=== PATIENT | female | born 1970 | race Caucasian/White ===

== ENCOUNTER 2021-05-18 07:51 | Emergency (ER) | payer OTHER, MEDICAID, SELFPAY ==
[~2021-05-18] VITALS: Ht 152.4 cm; Wt 49.9 kg
[2021-05-18 07:51] VITALS: BP_SYST 170
[2021-05-18] MEDS ORDERED: LevETIRAcetam 500 MG/5 ML UDC ORAL LIQUID GT ONE (08:15)
[2021-05-18 08:42] LABS: BASOPHILS % (AUTO) 0.5 % (0.0-2.0); EOSINOPHILS # (AUTO) 0.1 K/uL (0.0-0.4); HEMATOCRIT 38.8 % (36-48); HEMOGLOBIN 12.9 g/dL (12.0-16.0); LYMPHOCYTES % (AUTO) 29.4 % (20.5-51.5); MEAN CORPUSCULAR HEMOGLOBIN 31 pg (27-31); MEAN CORPUSCULAR HGB CONC 33 % (32-36); MEAN CORPUSCULAR VOLUME 94 fL (79.0-98.0); MONOCYTES # (AUTO) 0.3 K/uL (0.0-1.0); NEUTROPHILS % (AUTO) 59.1 % (40.0-70.0); PLATELET COUNT (AUTO) 164 K/uL (130-430); RED BLOOD CELL COUNT(AUTO) 4.15 MIL/uL (4.2-6.2); RED CELL DISTRIBUTION WIDTH 13.5 % (9.0-15.0); WHITE BLOOD COUNT (AUTO) 3.4 K/uL (4.8-10.8)
[2021-05-18 08:57] LABS: CALCIUM 8.6 mg/dL (8.4-11.0); CREATININE 0.85 mg/dL (0.55-1.30)
[2021-05-18] MEDS ORDERED: LORazepam 2 MG/ML VIAL ONE (09:14)
[2021-05-18] MEDS ORDERED: LORazepam 2 MG/ML VIAL IVP ONE (09:15)
[2021-05-18 09:16] LABS: ALBUMIN 3.7 g/dL (3.4-4.8); TOTAL BILIRUBIN 0.6 mg/dL (0.0-1.0)
[2021-05-18 11:48] VITALS: BP_SYST 133
== END 2021-05-18 11:48 | disposition home or self-care (01) ==
LOC: SED 07:51
DX: G40.909 Epilepsy, unspecified, not intractable, without status epilepticus (principal)
CPT/HCPCS: 36415; 70450; 76376; 80053; 83605; 85025; 99284; J2060

== ENCOUNTER 2021-11-07 10:18 | Emergency (ER) | payer OTHER, MEDICAID ==
[~2021-11-07] VITALS: Ht 167.6 cm; Wt 63.5 kg
[2021-11-07 10:25] VITALS: BP_SYST 93
[2021-11-07] MEDS ORDERED: levETIRAcetam 500 MG IV PREMIX 100 ML IV ONE (10:30)
[2021-11-07 11:21] LABS: BASOPHILS % (AUTO) 0.6 % (0.0-2.0); EOSINOPHILS # (AUTO) 0.1 K/uL (0.0-0.4); EOSINOPHILS % (AUTO) 2.4 % (0.0-4.0); HEMATOCRIT 35.9 % (36-48); HEMOGLOBIN 12.2 g/dL (12.0-16.0); LYMPHOCYTES # (AUTO) 0.8 K/uL (1.0-5.5); LYMPHOCYTES % (AUTO) 18.8 % (20.5-51.5); MEAN CORPUSCULAR HEMOGLOBIN 32 pg (27-31); MEAN CORPUSCULAR HGB CONC 34 % (32-36); MEAN CORPUSCULAR VOLUME 93 fL (79.0-98.0); MONOCYTES # (AUTO) 0.3 K/uL (0.0-1.0); MONOCYTES % (AUTO) 7.4 % (1.7-9.3); NEUTROPHILS % (AUTO) 70.8 % (40.0-70.0); PLATELET COUNT (AUTO) 167 K/uL (130-430); RED BLOOD CELL COUNT(AUTO) 3.87 MIL/uL (4.2-6.2); RED CELL DISTRIBUTION WIDTH 13.8 % (9.0-15.0); WHITE BLOOD COUNT (AUTO) 4.3 K/uL (4.8-10.8)
[2021-11-07 11:29] LABS: CALCIUM 8.7 mg/dL (8.4-11.0); CREATININE 0.82 mg/dL (0.55-1.30)
[2021-11-07 11:34] LABS: ALBUMIN 3.5 g/dL (3.4-4.8); TOTAL BILIRUBIN 0.7 mg/dL (0.0-1.0)
[2021-11-07 12:27] VITALS: BP_SYST 106
== END 2021-11-07 12:29 | disposition home or self-care (01) ==
LOC: SED 10:18
DX: G40.909 Epilepsy, unspecified, not intractable, without status epilepticus (principal); Z79.899 Other long term (current) drug therapy
CPT/HCPCS: 99284; 96365; 80053; 84703; 85025; 36415; 83605; J1953

== ENCOUNTER 2023-04-10 00:10 | Inpatient (IN) | payer OTHER, MEDICAID ==
[~2023-04-10] VITALS: Ht 170.2 cm; Wt 58.1 kg
[2023-04-10 00:14] VITALS: BP_SYST 120; PULSE 84; RESP 20; TEMP 97.1; O2SAT 95
[2023-04-10 01:21] LABS: BILIRUBIN,URINE NEGATIVE (NEGATIVE); BLOOD, URINE NEGATIVE (NEGATIVE); CLARITY/URINE CLEAR (CLEAR); COLOR,URINE YELLOW (YELLOW); GLUCOSE,URINE NEGATIVE (NEGATIVE); KETONES,URINE NEGATIVE (NEGATIVE); LEUKOCYTE ESTERASE ,URINE NEGATIVE (NEGATIVE); NITRITE, URINE POSITIVE (NEGATIVE); PROTEIN URINE NEGATIVE (NEGATIVE); UROBILINOGEN,URINE 0.2 (0.2-1.0)
[2023-04-10 01:34] LABS: BACTERIA,URINE MANY /HPF (None Seen)
[2023-04-10] MEDS ORDERED: cefTRIAXone 1 GM IVPB PREMIX 50 ML IV ONE (02:00)
[2023-04-10 02:15] LABS: CALCIUM 9.2 mg/dL (8.4-11.0); CREATININE 0.72 mg/dL (0.55-1.30); POTASSIUM 3.6 mmol/L (3.5-5.1)
[2023-04-10 02:19] LABS: ALBUMIN 3.3 g/dL (3.4-4.8); BILIRUBIN,DIRECT 0.1 mg/dL (0.0-0.3); TOTAL BILIRUBIN 0.3 mg/dL (0.0-1.0)
[2023-04-10 03:10] LABS: BASOPHILS % (AUTO) 0.3 % (0.0-2.0); EOSINOPHILS # (AUTO) 0.1 K/uL (0.0-0.4); EOSINOPHILS % (AUTO) 1.8 % (0.0-4.0); HEMATOCRIT 35.1 % (36-48); HEMOGLOBIN 11.4 g/dL (12.0-16.0); LYMPHOCYTES # (AUTO) 1.5 K/uL (1.0-5.5); LYMPHOCYTES % (AUTO) 21.9 % (20.5-51.5); MEAN CORPUSCULAR HEMOGLOBIN 32 pg (27-31); MEAN CORPUSCULAR HGB CONC 33 % (32-36); MEAN CORPUSCULAR VOLUME 97 fL (79.0-98.0); MONOCYTES # (AUTO) 0.4 K/uL (0.0-1.0); MONOCYTES % (AUTO) 5.5 % (1.7-9.3); NEUTROPHILS # (AUTO) 4.8 K/uL (1.8-7.7); NEUTROPHILS % (AUTO) 70.5 % (40.0-70.0); PLATELET COUNT (AUTO) 241 K/uL (130-430); RED BLOOD CELL COUNT(AUTO) 3.61 MIL/uL (4.2-6.2); RED CELL DISTRIBUTION WIDTH 13.5 % (9.0-15.0); WHITE BLOOD COUNT (AUTO) 6.8 K/uL (4.8-10.8)
[2023-04-10] MEDS ORDERED: ONDANSETRON HCL 4 MG/2 ML VIAL IVP PRN (05:30)
[2023-04-10] MEDS ORDERED: MUPIROCIN 2% TOPICAL OINTMENT 22 GM NS PRN (05:30)
[2023-04-10] MEDS ORDERED: MAGNESIUM SULFATE 50 ML IV PRN (05:30)
[2023-04-10] MEDS ORDERED: LORazepam 2 MG/ML VIAL IVP PRN (05:30)
[2023-04-10] MEDS ORDERED: DOCUSATE SODIUM 100 MG CAPSULE PO PRN (05:30)
[2023-04-10] MEDS ORDERED: MORPHINE 2 MG/ML INJ. SYRINGE IVP PRN ×2 (05:30)
[2023-04-10] MEDS ORDERED: POTASSIUM CHLORIDE 20 MEQ TABLET.ER PO PRN (05:30)
[2023-04-10] MEDS ORDERED: ACETAMINOPHEN 325 MG TABLET PO PRN ×2 (05:30→11:30)
[2023-04-10] MEDS ORDERED: cefTRIAXone 1 GM IVPB PREMIX 50 ML IV SCH (05:30)
[2023-04-10] MEDS ORDERED: [UNRECOGNIZED DRUG - CODE] GT (06:07)
[2023-04-10] MEDS ORDERED: MEMA5TAB42 GT (06:07)
[2023-04-10] MEDS ORDERED: LEVETIRACETA (06:07)
[2023-04-10] MEDS ORDERED: CALC-886 GT (06:07)
[2023-04-10] MEDS ORDERED: FAMO40TA7 GT (06:07)
[2023-04-10] MEDS ORDERED: LEVE100S (06:07)
[2023-04-10] MEDS ORDERED: MEDR10TA10 GT (06:07)
[2023-04-10] MEDS ORDERED: B6/F1TAB GT (06:07)
[2023-04-10] MEDS ORDERED: ASCO500T20 GT (06:07)
[2023-04-10] MEDS ORDERED: GABA-534 GT (06:07)
[2023-04-10] MEDS ORDERED: NACL 0.9% 1,000 ML IV SCH (06:30)
[2023-04-10] MEDS ORDERED: ZONI100C42 PO (07:49)
[2023-04-10] MEDS ORDERED: DOCUSATE SODIUM 100 MG/10 ML UDC GT PRN (11:45)
[2023-04-10] MEDS ORDERED: POTASSIUM CHLORIDE 20 MEQ/PKT PACKET GT PRN (11:45)
[2023-04-10] MEDS ORDERED: GABAPENTIN 400 MG CAPSULE GT SCH (15:00)
[2023-04-10] MEDS: GABAPENTIN 300 MG CAPSULE GT SCH ×2 (15:31→22:01)
[2023-04-10] MEDS: levETIRAcetam 500 MG IV PREMIX 100 ML IV SCH (22:02)
[2023-04-10] MEDS: ZONISAMIDE 100 MG CAPSULE PO SCH (22:02)
[2023-04-10 22:23] VITALS: BP_SYST 121; PULSE 94; RESP 18; TEMP 98.8
[2023-04-11 00:08] VITALS: BP_SYST 123; PULSE 90; RESP 14; TEMP 98.7; O2SAT 95
[2023-04-11 06:14] LABS: BASOPHILS % (AUTO) 0.3 % (0.0-2.0); EOSINOPHILS # (AUTO) 0.1 K/uL (0.0-0.4); EOSINOPHILS % (AUTO) 1.8 % (0.0-4.0); HEMATOCRIT 34.8 % (36-48); HEMOGLOBIN 11.5 g/dL (12.0-16.0); LYMPHOCYTES # (AUTO) 2.1 K/uL (1.0-5.5); LYMPHOCYTES % (AUTO) 36.2 % (20.5-51.5); MEAN CORPUSCULAR HEMOGLOBIN 32 pg (27-31); MEAN CORPUSCULAR HGB CONC 33 % (32-36); MEAN CORPUSCULAR VOLUME 97 fL (79.0-98.0); MONOCYTES # (AUTO) 0.4 K/uL (0.0-1.0); NEUTROPHILS # (AUTO) 3.2 K/uL (1.8-7.7); NEUTROPHILS % (AUTO) 54.7 % (40.0-70.0); PLATELET COUNT (AUTO) 231 K/uL (130-430); RED BLOOD CELL COUNT(AUTO) 3.59 MIL/uL (4.2-6.2); RED CELL DISTRIBUTION WIDTH 13.2 % (9.0-15.0); WHITE BLOOD COUNT (AUTO) 5.8 K/uL (4.8-10.8)
[2023-04-11 06:28] LABS: CALCIUM 9.2 mg/dL (8.4-11.0); CREATININE 0.62 mg/dL (0.55-1.30); POTASSIUM 3.9 mmol/L (3.5-5.1)
[2023-04-11 08:01] VITALS: BP_SYST 122; PULSE 68; RESP 16; TEMP 98.6; O2SAT 97
[2023-04-11] MEDS: MEMANTINE HCL 5 MG TABLET GT SCH (08:45)
[2023-04-11] MEDS: GABAPENTIN 300 MG CAPSULE GT SCH ×3 (08:45→20:43)
[2023-04-11] MEDS: FAMOTIDINE 20 MG TABLET GT SCH (08:45)
[2023-04-11] MEDS: levETIRAcetam 500 MG IV PREMIX 100 ML IV SCH (08:46)
[2023-04-11] MEDS ORDERED: DOCUSATE SODIUM 100 MG/10 ML UDC GT ONE (10:30)
[2023-04-11] MEDS ORDERED: BISACODYL 10 MG/SUPPOSITORY RC ONE (10:30)
[2023-04-11] MEDS ORDERED: BISACODYL 5 MG TABLET.DR (DULCOLAX) PO ONE (11:00)
[2023-04-11] MEDS: metroNIDAZOLE 500 mg/NS 100 ML IV SCH ×2 (11:54→19:04)
[2023-04-11] MEDS: LevETIRAcetam 500 MG/5 ML UDC ORAL LIQUID GT SCH (20:44)
[2023-04-11] MEDS: ZONISAMIDE 100 MG CAPSULE PO SCH (20:46)
[2023-04-12 02:18] VITALS: BP_SYST 119; PULSE 72; RESP 17; TEMP 97.6; O2SAT 97
[2023-04-12] MEDS: metroNIDAZOLE 500 mg/NS 100 ML IV SCH ×2 (03:31→11:20)
[2023-04-12 07:44] LABS: BASOPHILS % (AUTO) 0.6 % (0.0-2.0); EOSINOPHILS # (AUTO) 0.2 K/uL (0.0-0.4); EOSINOPHILS % (AUTO) 3.1 % (0.0-4.0); HEMATOCRIT 35.6 % (36-48); HEMOGLOBIN 11.5 g/dL (12.0-16.0); LYMPHOCYTES # (AUTO) 2.1 K/uL (1.0-5.5); LYMPHOCYTES % (AUTO) 38.5 % (20.5-51.5); MEAN CORPUSCULAR HEMOGLOBIN 32 pg (27-31); MEAN CORPUSCULAR HGB CONC 32 % (32-36); MEAN CORPUSCULAR VOLUME 97 fL (79.0-98.0); MONOCYTES # (AUTO) 0.5 K/uL (0.0-1.0); MONOCYTES % (AUTO) 8.8 % (1.7-9.3); NEUTROPHILS # (AUTO) 2.7 K/uL (1.8-7.7); PLATELET COUNT (AUTO) 226 K/uL (130-430); RED BLOOD CELL COUNT(AUTO) 3.66 MIL/uL (4.2-6.2); RED CELL DISTRIBUTION WIDTH 13.2 % (9.0-15.0); WHITE BLOOD COUNT (AUTO) 5.4 K/uL (4.8-10.8)
[2023-04-12 07:56] LABS: CALCIUM 8.8 mg/dL (8.4-11.0); CREATININE 0.57 mg/dL (0.55-1.30); POTASSIUM 3.8 mmol/L (3.5-5.1)
[2023-04-12 08:00] VITALS: BP_SYST 120; PULSE 90; RESP 20; TEMP 99.1; O2SAT 93
[2023-04-12] MEDS ORDERED: LEVO-62 PO (08:08)
[2023-04-12] MEDS ORDERED: METR-154 PO (08:08)
[2023-04-12] MEDS: DOCUSATE SODIUM 100 MG/10 ML UDC GT SCH ×2 (09:28→11:20)
[2023-04-12] MEDS: MEMANTINE HCL 5 MG TABLET GT SCH (09:28)
[2023-04-12] MEDS: GABAPENTIN 300 MG CAPSULE GT SCH (09:28)
[2023-04-12] MEDS: FAMOTIDINE 20 MG TABLET GT SCH (09:29)
[2023-04-12] MEDS: LevETIRAcetam 500 MG/5 ML UDC ORAL LIQUID GT SCH (09:46)
[2023-04-12 12:00] VITALS: BP_SYST 119; PULSE 83; RESP 18; TEMP 98
[2023-04-12 12:31] VITALS: BP_SYST 119; PULSE 83; RESP 19; TEMP 98; O2SAT 100
== END 2023-04-12 15:00 | disposition home or self-care (01) | DRG 392 ==
LOC: SED 00:10 → STU 05:19
PROVIDERS: ADMIT Family Medicine; ATTEND Family Medicine
DX: K52.9 Noninfective gastroenteritis and colitis, unspecified (principal); E44.1 Mild protein-calorie malnutrition; N39.0 Urinary tract infection, site not specified; G40.909 Epilepsy, unspecified, not intractable, without status epilepticus; Z68.20 Body mass index [BMI] 20.0-20.9, adult; B96.20 Unspecified Escherichia coli [E. coli] as the cause of diseases classified elsewhere; D64.9 Anemia, unspecified; Z87.820 Personal history of traumatic brain injury
CPT/HCPCS: 36415; 70450-TC; 76376; 76700-TC; 80048; 80076; 81000; 81001; 81015; 83605; 83735; 85025; 87040; 87086; 96365; 99285; G0378; J0696; J1953; J1956; J3490